=== PATIENT | female | born 1960 | race Caucasian/White ===

== ENCOUNTER → 2025-02-19 | Outpatient (CLI) | payer MEDICARE, BC ==
[~2025-02-19] MED LIST: ESOM40CA35; PRAV20TA78
[2025-02-19 10:15] VITALS: TEMP 98.7
[2025-02-19 11:05] VITALS: BP 132/88; O2SAT 100
== END ==
LOC: M WHCPRO 09:34
PROVIDERS: ATTEND Surgery
DX: N63.15 Unspecified lump in the right breast, overlapping quadrants (principal); C50.811 Malignant neoplasm of overlapping sites of right female breast

== ENCOUNTER → 2025-03-19 | Outpatient (CLI) | payer MEDICARE, BC ==
[~2025-03-19] MED LIST changes: +CLAR10CA3 PO; +DAILTAB62 PO; +FAMO1TAB11 PO; +FLUTISP; +HYDR-3363 PO; +OMEP-173 PO; +ONDA-83; +OXYC-517 PO; +PRAV40TA85 PO
[2025-03-20 06:59] VITALS: TEMP 97.9
[2025-03-20 08:10] VITALS: BP 138/80; O2SAT 100
== END ==
LOC: M WHCPRO 14:02
PROVIDERS: ATTEND Surgery
DX: C50.511 Malignant neoplasm of lower-outer quadrant of right female breast (principal)
CPT/HCPCS: 19285; 77065; A4648

== ENCOUNTER 2025-03-27 09:15 | Day surgery (SDC) | payer MEDICARE, BC ==
[~2025-03-27] VITALS: Ht 167.6 cm; Wt 95.3 kg
[~2025-03-27 09:15] MED LIST changes: -DEXA4TA PO; +LIDOCAINE 2% 100 MG/5 ML SDV (FOR ANES.) As Ordered ONE; +MIDAZOLAM INJ 2 MG/2 ML VIAL As Ordered ONE; -OLAN10TA12 PO; -ONDA-84 PO; -OXYC-517 PO; -PROC10TA5 PO
[2025-03-27] MEDS ORDERED: SCOPOLAMINE 1MG TRANSDERMAL PATCH TOP ONE (10:10)
[2025-03-27] MEDS: ceFAZolin SOD 2 GM IV ONCE IV ONE (12:30)
[2025-03-27] MEDS ORDERED: ACETAMINOPHEN 1000MG/100ML IV BAG As Ordered ONE (12:39)
[2025-03-27] MEDS ORDERED: dexAMETHasone 4 MG/ML 1 ML VIAL As Ordered ONE (13:26)
[2025-03-27] MEDS ORDERED: KETOROLAC 30 MG/ML 1 ML VIAL As Ordered ONE (13:26)
[2025-03-27] MEDS ORDERED: ONDANSETRON 4MG 2ML VIAL As Ordered ONE (13:26)
[2025-03-27] MEDS ORDERED: DESFLURANE 240 ML INHALANT As Ordered ONE (14:31)
[2025-03-27] MEDS ORDERED: ONDANSETRON 4MG 2ML VIAL IV PRN (14:40)
[2025-03-27] MEDS ORDERED: OXYC-517 PO (15:11)
[2025-03-27] MEDS: HYDROMORPHONE HCL 0.5 MG/0.5 ML SYRINGE IV PRN (15:12)
[2025-03-27 16:50] VITALS: BP 139/72; TEMP 97.1; O2SAT 97
[2025-04-17] MEDS ORDERED: DEXA4TA PO (14:30)
[2025-05-01] MEDS ORDERED: ONDA-84 PO (10:37)
[2025-05-01] MEDS ORDERED: PROC10TA5 PO (10:37)
[2025-05-06] MEDS ORDERED: OLAN10TA12 PO (15:48)
[2025-05-15] MEDS ORDERED: DEXA4TA PO (11:20)
== END 2025-03-27 17:11 | disposition home or self-care (01) ==
LOC: M SDC 09:15
PROVIDERS: ATTEND Surgery
DX: C50.511 Malignant neoplasm of lower-outer quadrant of right female breast (principal); Z79.899 Other long term (current) drug therapy; Z87.891 Personal history of nicotine dependence; Z88.1 Allergy status to other antibiotic agents; Z88.2 Allergy status to sulfonamides; Z98.890 Other specified postprocedural states
CPT/HCPCS: 14301; 14302; 19301; 38525; 38900; 88307; A9520; J0131; J0690; J1100; J1171; J1885; J2250; J2405; J3010

== ENCOUNTER → 2025-03-27 | Outpatient (CLI) | payer MEDICARE, BC ==
[~2025-03-27] MED LIST changes: +DEXA4TA PO; +OLAN10TA12 PO; +ONDA-84 PO; +PROC10TA5 PO
== END ==
LOC: M RADPRO 08:18
PROVIDERS: ATTEND Surgery
DX: C50.511 Malignant neoplasm of lower-outer quadrant of right female breast (principal)

== ENCOUNTER → 2025-04-29 | Outpatient (CLI) | payer MEDICARE, BC ==
[~2025-04-29] MED LIST changes: +DEXA4TA PO; -LIDOCAINE 2% 100 MG/5 ML SDV (FOR ANES.) As Ordered ONE; -MIDAZOLAM INJ 2 MG/2 ML VIAL As Ordered ONE; +ONDA-84 PO; +OXYC-517 PO; +PROC10TA5 PO
== END ==
LOC: M IRPRO 10:06
PROVIDERS: ATTEND Internal Medicine Medical Oncology
DX: C50.919 Malignant neoplasm of unspecified site of unspecified female breast (principal)
CPT/HCPCS: 36569; C1751

== ENCOUNTER → 2025-04-30 | Outpatient (CLI) | payer MEDICARE, BC | LOC: M ONCR 10:19 | PROVIDERS: ATTEND General Practice | DX: C50.511 Malignant neoplasm of lower-outer quadrant of right female breast (principal); Z17.0 Estrogen receptor positive status [ER+]; Z17.21 Progesterone receptor positive status; Z17.32 Human epidermal growth factor receptor 2 negative status; Z98.890 Other specified postprocedural states; Z80.51 Family history of malignant neoplasm of kidney; Z88.1 Allergy status to other antibiotic agents; Z88.2 Allergy status to sulfonamides; Z79.51 Long term (current) use of inhaled steroids; Z79.899 Other long term (current) drug therapy ==

== ENCOUNTER 2025-06-18 11:28 | Outpatient (RCR) | payer MEDICARE, BC ==
[~2025-06-18 11:28] MED LIST changes: +OLAN10TA12 PO
== END 2025-06-20 ==
LOC: M ONCR 11:28
PROVIDERS: ATTEND General Practice
DX: Z51.0 Encounter for antineoplastic radiation therapy (principal); C50.511 Malignant neoplasm of lower-outer quadrant of right female breast

== ENCOUNTER 2025-07-15 11:38 | Outpatient (RCR) | payer MEDICARE, BC | END 2025-07-20 | LOC: M ONCR 11:38 | PROVIDERS: ATTEND General Practice | DX: Z51.0 Encounter for antineoplastic radiation therapy (principal); C50.511 Malignant neoplasm of lower-outer quadrant of right female breast ==